=== PATIENT | female | born 1995 | race Caucasian/White ===

== ENCOUNTER 2016-10-15 09:20 | Emergency (ER) | payer SELFPAY | END 2016-10-15 09:35 | disposition left against medical advice (07) | LOC: ER 09:20 | DX: Z53.21 Procedure and treatment not carried out due to patient leaving prior to being seen by health care provider (principal) ==

== ENCOUNTER 2016-10-15 11:05 | Emergency (ER) | payer SELFPAY ==
--- NOTE | 2016-10-15 11:22 | ER Document Report ---
ED Medical Screen (RME) - General Stated Complaint: BACK PAIN Mode of Arrival: Ambulatory Information source: Patient Notes: 21 y/o F presents to ED c/o right lower posterior rib pain s/p fall. Pt reports was at store yesterday evening when she fell and struck her right lower posterior rib area on pole. Denies chest pain or sob. I have greeted and performed a rapid initial assessment of this patient. A comprehensive ED assessment and evaluation of the patient, analysis of test results and completion of the medical decision making process will be conducted by additional ED providers. TRAVEL OUTSIDE OF THE [place] IN LAST 30 DAYS: No - Related Data Allergies/Adverse Reactions: diphenhydramine [From Benadryl] Allergy (Severe, Verified 07/11/16 08:59) Swelling of hands and/or feet Past Medical History - Immunizations Immunizations up to date: Yes Hx Diphtheria, Pertussis, Tetanus Vaccination: Yes Physical Exam - Vital signs Vitals: Temp Pulse Resp BP Pulse Ox 98.0 F 85 16 115/71 97 10/15/16 11:16 10/15/16 11:16 10/15/16 11:16 10/15/16 11:16 10/15/16 11:16 - General General appearance: Appears well, Alert In distress: None - Respiratory Respiratory status: No respiratory distress Course - Vital Signs Vital signs: Temp Pulse Resp BP Pulse Ox 98.0 F 85 16 115/71 97 10/15/16 11:16 10/15/16 11:16 10/15/16 11:16 10/15/16 11:16 10/15/16 11:16
--- NOTE | 2016-10-15 12:25 | ER Document Report ---
HPI - HPI Patient complains to provider of: left upper back pain Onset: Yesterday Onset/Duration: Sudden Quality of pain: Achy Pain Level: 4 Context: Patient states she was playing around in a store with her spouse and fell into a metal support being. Patient complains of continued left upper back pain. Associated Symptoms: Other - Left upper back pain Exacerbated by: Movement Relieved by: Denies Similar symptoms previously: No Recently seen / treated by doctor: No - ROS ROS below otherwise negative: Yes Systems Reviewed and Negative: Yes All other systems reviewed and negative - CONSTITUTIONAL Constitutional: DENIES: Fever, Chills - REPRODUCTIVE Reproductive: DENIES: : - MUSCULOSKELETAL Musculoskeletal: REPORTS: Back Pain - DERM Skin Color: Normal Skin Problems: None Past Medical History - General Information source: Patient - Social History Smoking Status: Never Smoker Chew tobacco use (# tins/day): No Frequency of alcohol use: None Drug Abuse: None 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 IN LAST 30 DAYS: No - HEENT HEENT: Atraumatic, Normocephalic - NECK Neck: Normal Inspection, Supple - RESPIRATORY Respiratory: Breath Sounds Normal, No Respiratory Distress O2 Sat by Pulse Oximetry: 97 - CARDIOVASCULAR Cardiovascular: Regular Rate, Regular Rhythm, No Murmur - BACK Back: Abnormal Inspection - right lower thoracic back tenderness. negative: CVA Tenderness-Right, CVA Tenderness-Left - MUSCULOSKELETAL/EXTREMETIES Musculoskeletal/Extremeties: MAEW, FROM - NEURO Level of Consciousness: Awake, Alert, Appropriate Motor/Sensory: No Motor Deficit - DERM Integumentary: Warm, Dry, No Rash Course - Vital Signs Vital signs: Temp Pulse Resp BP Pulse Ox 98.0 F 85 16 115/71 97 10/15/16 11:16 10/15/16 11:16 10/15/16 11:16 10/15/16 11:16 10/15/16 11:16 - Diagnostic Test Radiology reviewed: Reports reviewed Discharge - Discharge Clinical Impression: Back strain Qualifiers: Encounter type: initial encounter Qualified Code(s): S39.012A - Strain of muscle, fascia and tendon of lower back, initial encounter Condition: Stable Disposition: HOME, SELF-CARE Instructions: Upper Back Strain ([facility]), Oral Narcotic Medication ([facility]) Additional Instructions: Return immediately for any new or worsening symptoms Followup with your primary care provider, call tomorrow to make a followup appointment Prescriptions: Hydrocodone/Acetaminophen [[place] 5-325 Tablet] 1 each PO Q4 PRN #15 tablet PRN Reason: Naproxen [Naprosyn 250 Nmg Tablet] 1 tab PO BID #14 tablet Forms: Return to Work Referrals: [facility] [Provider Group] - Follow up as needed [facility] [Provider Group] - Follow up as needed
[2016-10-15 12:44] VITALS: BP 109/67
== END 2016-10-15 12:41 | disposition home or self-care (01) ==
LOC: ER 11:05
DX: S39.012A Strain of muscle, fascia and tendon of lower back, initial encounter (principal); W19.XXXA Unspecified fall, initial encounter; Y92.512 Supermarket, store or market as the place of occurrence of the external cause; M54.89 Other dorsalgia
CPT/HCPCS: 99283

== ENCOUNTER 2017-01-14 15:59 | Emergency (ER) | payer SELFPAY ==
[2017-01-14] MEDS ORDERED: IBUPROFEN 800 MG TABLET PO ONE (17:00)
--- NOTE | 2017-01-14 17:00 | ER Document Report ---
ED Medical Screen (RME) - General Chief Complaint: Finger Injury Stated Complaint: RIGHT RING FINGER INJURY Time Seen by Provider: 01/14/17 16:32 Mode of Arrival: Ambulatory Information source: Patient Notes: Yesterday landing on her hand injuring her fourth finger on her right hand. Had a swollen tender right fourth finger. She has not gotten relief with over- the-counter medicines. I have greeted and performed a rapid initial assessment of this patient. A comprehensive ED assessment and evaluation of the patient, analysis of test results and completion of medical decision making process will be conducted by an additional ED providers. TRAVEL OUTSIDE OF THE [place] IN LAST 30 DAYS: No - Related Data Allergies/Adverse Reactions: diphenhydramine [From Benadryl] Allergy (Severe, Verified 01/14/17 16:06) Swelling of hands and/or feet Past Medical History Renal/ Medical History: Denies: Hx Peritoneal Dialysis - Immunizations Immunizations up to date: Yes Hx Diphtheria, Pertussis, Tetanus Vaccination: Yes
--- NOTE | 2017-01-14 18:06 | ER Document Report ---
ED Hand/Wrist Injury - General Chief Complaint: Finger Injury Stated Complaint: RIGHT RING FINGER INJURY Time Seen by Provider: 01/14/17 16:32 Mode of Arrival: Ambulatory Information source: Patient Notes: 21-year-old female presents to ED for complaint of pain on her right fourth finger. She states she fell and caught herself with that finger. Finger is swollen and bruised. She states it hurts to bend it but she is able to bend the finger. TRAVEL OUTSIDE OF THE [place] IN LAST 30 DAYS: No - HPI Injury to: Ring finger Onset: Other - 2 days Where: Home, Indoors Timing: Still present Quality of pain: Achy, Throbbing Severity: Moderate Pain Level: 4 Context: Fall - Related Data Allergies/Adverse Reactions: diphenhydramine [From Benadryl] Allergy (Severe, Verified 01/14/17 16:06) Swelling of hands and/or feet Past Medical History - General Information source: Patient - Social History Smoking Status: Never Smoker Cigarette use (# per day): No Chew tobacco use (# tins/day): No Smoking Education Provided: No Frequency of alcohol use: Occasional Drug Abuse: None Occupation: [employer] Lives with: Spouse/Significant other Family History: DM. denies: None, Reviewed & Not Pertinent, Arthritis, CAD, COPD, CVA, Hyperlipidemia, Hypertension, Malignancy, Thyroid Disfunction, Other Patient has suicidal ideation: No Patient has homicidal ideation: No - Past Medical History Cardiac Medical History: Reports: None Pulmonary Medical History: Reports: None EENT Medical History: Reports: None Neurological Medical History: Reports: None Endocrine Medical History: Reports: None Renal/ Medical History: Reports: None Malignancy Medical History: Reports: None GI Medical History: Reports: None Musculoskeltal Medical History: Reports None Skin Medical History: Reports None Psychiatric Medical History: Reports: None Traumatic Medical History: Reports: None Infectious Medical History: Reports: None Surgical Hx: Negative - Immunizations Immunizations up to date: Yes Hx Diphtheria, Pertussis, Tetanus Vaccination: Yes Review of Systems - Review of Systems Constitutional: No symptoms reported EENT: No symptoms reported Cardiovascular: No symptoms reported Respiratory: No symptoms reported Gastrointestinal: No symptoms reported Genitourinary: No symptoms reported Female Genitourinary: No symptoms reported Musculoskeletal: Other - right Fourth finger pain swelling and bruised Skin: No symptoms reported Hematologic/Lymphatic: No symptoms reported Neurological/Psychological: No symptoms reported Physical Exam - Vital signs Vitals: Temp Pulse Resp BP Pulse Ox 98.9 F 85 14 123/71 98 01/14/17 16:08 01/14/17 16:08 01/14/17 16:08 01/14/17 16:08 01/14/17 16:08 Interpretation: Normal - General General appearance: Appears well, Alert - HEENT Head: Normocephalic, Atraumatic Eyes: Normal Pupils: PERRL - Respiratory Respiratory status: No respiratory distress Chest status: Nontender Breath sounds: Normal Chest palpation: Normal - Cardiovascular Rhythm: Regular Heart sounds: Normal auscultation Murmur: No - Abdominal Inspection: Normal Distension: No distension Bowel sounds: Normal Tenderness: Nontender Organomegaly: No organomegaly - Back Back: Normal, Nontender - Extremities General upper extremity: Normal temperature General lower extremity: Normal inspection, Nontender, Normal color, Normal ROM , Normal temperature, Normal weight bearing. No: Damien's sign Hand: Tender, Ecchymosis, No evidence of human bite, No evidence of FB, Swelling - Neurological Neuro grossly intact: Yes Cognition: Normal Orientation: AAOx4 [place] Coma Scale Eye Opening: Spontaneous [place] Coma Scale Verbal: Oriented [place] Coma Scale Motor: Obeys Commands [place] Coma Scale Total: 15 Speech: Normal Motor strength normal: LUE, RUE, LLE, RLE Sensory: Normal - Psychological Associated symptoms: Normal affect, Normal mood - Skin Skin Temperature: Warm Skin Moisture: Dry Skin Color: Normal Course - Re-evaluation Re-evalutation: 01/14/17 18:15 Discussed x-ray with patient and written report given to patient. Patient treated with ibuprofen and instructed to use ibuprofen for her pain. Patient given instructions on elevation and ice. Patient to follow-up with orthopedic if pain and swelling are not relieved or increase. - Vital Signs Vital signs: Temp Pulse Resp BP Pulse Ox 98.9 F 85 14 123/71 98 01/14/17 16:08 01/14/17 16:08 01/14/17 16:08 01/14/17 16:08 01/14/17 16:08 - Diagnostic Test Radiology reviewed: Image reviewed, Reports reviewed Discharge - Discharge Clinical Impression: Sprain of right ring finger Qualifiers: Encounter type: initial encounter Sprain of finger site: interphalangeal joint Qualified Code(s): S63.634A - Sprain of interphalangeal joint of right ring finger, initial encounter Condition: Stable Disposition: HOME, SELF-CARE Additional Instructions: finger SPRAIN: Your injury is a sprain. A sprain results from stretching or tearing of the ligaments, usually from a twisting injury. The ligaments will require time and protection in order to heal properly. Many sprains are quite disabling and should be taken seriously. The usual initial treatment of sprains is cold packs, elevation, and rest of the injured area. Your physician has assessed the seriousness of your ligament injury, and has outlined a treatment plan. Understand that this treatment may change, depending on how you progress. If a re-examination was recommended, it is important that you follow up as instructed. Call the doctor any time if there is severe pain, numbness, or loss of function in the injured area. ICE & ELEVATION: Apply ice packs frequently against the painful area. Many different schedules are recommended, such as "20 minutes on, 20 minutes off" or "one hour ice, two hours rest." If you need to work, you may need to go longer between ice treatments. You should plan to have the area ice packed AT LEAST one- fourth of the time. The ice should be applied over the wrap, tape, or splint, or over a layer of cloth -- not directly against the skin. Some ice bags have a built-in cloth and can be put directly on the skin. Your injured part should be elevated as much as possible over the next 48 hours. Try to keep the injury above the level of the heart. Avoid use of the injured area. Elevation and rest will decrease the swelling. USE OF [id number]-YKT-TCHWLEX IBUPROFEN: Ibuprofen (Advil, Nuprin, Medipren, Motrin IB) is a medication for fever and pain control. In addition, it has anti- inflammatory effects which may be beneficial, especially in the treatment of injuries. It's best to take ibuprofen with food. Persons with ulcer disease or allergy to aspirin should notify their physician of this before taking ibuprofen. Ibuprofen can be given every four to six hours, for a total of four doses daily. Age Pain or fever dose Antiinflammatory dose 6-8 yr 200 mg (1 tab) 200 mg (1 tab) 9-11 yr 200 mg (1 tab) 200-400 mg (1-2 tab) 11-14 yr 200-400 mg (1-2 tab) 400 mg (2 tab) 15-adult 400 mg (2 tab) 600 mg (3 tab) FOLLOW-UP CARE: If you have been referred to a physician for follow-up care, call the physician s office for an appointment as you were instructed or within the next two days. If you experience worsening or a significant change in your symptoms, notify the physician immediately or return to the Emergency Department at any time for re-evaluation. Forms: Return to Work Referrals: MILI ALLEN DO [ACTIVE STAFF] - Follow up as needed
[2017-01-14 18:21] VITALS: BP 113/63
== END 2017-01-14 18:24 | disposition home or self-care (01) ==
LOC: ER 15:59
DX: S63.634A Sprain of interphalangeal joint of right ring finger, initial encounter (principal); W19.XXXA Unspecified fall, initial encounter; Y92.009 Unspecified place in unspecified non-institutional (private) residence as the place of occurrence of the external cause
CPT/HCPCS: 99283

== ENCOUNTER 2017-06-20 15:05 | Emergency (ER) | payer SELFPAY ==
[2017-06-20 15:31] VITALS: BP 115/66
--- NOTE | 2017-06-20 16:33 | ER Document Report ---
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 She states she is having pelvic pain vaginal pain and left inguinal pain. She also is urinating more frequently. She denies any vaginal bleeding. She states she has some discharge but this is because she has a yeast infection. TRAVEL OUTSIDE OF THE [place] IN LAST 30 DAYS: No - Related Data Allergies/Adverse Reactions: diphenhydramine [From Benadryl] Allergy (Severe, Verified 01/14/17 16:06) Swelling of hands and/or feet Past Medical History Renal/ Medical History: Denies: Hx Peritoneal Dialysis - Immunizations Immunizations up to date: Yes Hx Diphtheria, Pertussis, Tetanus Vaccination: Yes Physical Exam - Vital signs Vitals: Temp Pulse Resp BP Pulse Ox 99.6 F 71 14 115/66 100 06/20/17 15:26 06/20/17 15:26 06/20/17 15:26 06/20/17 15:26 06/20/17 15:26 Course - Vital Signs Vital signs: Temp Pulse Resp BP Pulse Ox 99.6 F 71 14 115/66 100 06/20/17 15:26 06/20/17 15:26 06/20/17 15:26 06/20/17 15:26 06/20/17 15:26
[2017-06-20 17:19] LABS: APPEARANCE,URINE CLEAR; BILIRUBIN,URINE NEGATIVE (NEGATIVE); GLUCOSE, URINE NEGATIVE (NEGATIVE); KETONES,URINE NEGATIVE (NEGATIVE); LEUKOCYTE ESTERASE,URINE NEGATIVE (NEGATIVE); NITRITE,URINE NEGATIVE (NEGATIVE); PROTEIN,URINE NEGATIVE (NEGATIVE); URINE SPECIFIC GRAVITY 1.011; UROBILINOGEN,URINE NEGATIVE mg/dL (<2.0)
[2017-06-20] MEDS ORDERED: IBUPROFEN 800 MG TABLET PO ONE (17:26)
--- NOTE | 2017-06-20 17:28 | ER Document Report ---
HPI - HPI Patient complains to provider of: Vaginal discharge, pelvic pain Onset: Other - Off and on 6 weeks Onset/Duration: Worse Quality of pain: Cramping Pain Level: 3 Context: Patient complains of left lower pelvic pain off and on for the past 6 weeks. Patient states pain symptoms worsen today. Patient does report some mild vaginal discharge and is concerned about possible yeast infection. Patient denies any concern about possible sexually transmitted infection. Patient does report some urinary frequency but states she has had this symptom ever since having her child over a year ago. Patient denies any fever, nausea, or vomiting. 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 Patient states she has been advised that she needs to follow-up with a surgeon to have this definitively treated. Associated Symptoms: Other - Left lower pelvic pain, vaginal discharge. denies : Nonproductive cough, Productive cough, Fever Exacerbated by: Denies Relieved by: Denies Similar symptoms previously: No Recently seen / treated by doctor: No - ROS ROS below otherwise negative: Yes Systems Reviewed and Negative: Yes All other systems reviewed and negative - CONSTITUTIONAL Constitutional: DENIES: Fever, Chills - CARDIOVASCULAR Cardiovascular: DENIES: Chest pain - RESPIRATORY Respiratory: DENIES: Trouble Breathing, Coughing - GASTROINTESTINAL Gastrointestinal: REPORTS: Abdominal Pain. DENIES: Nausea, Patient vomiting - URINARY Urinary: REPORTS: Frequency. 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 denies: None, Reviewed & Not Pertinent, Arthritis, CAD, COPD, CVA, Hyperlipidemia, Hypertension, Malignancy, Thyroid Disfunction, Other Renal/ Medical History: Denies: Hx Peritoneal Dialysis Musculoskeltal Medical History: Reports Hx Arthritis, Reports Hx Fibromyalgia Surgical Hx: Negative - Immunizations Immunizations up to date: Yes Hx Diphtheria, Pertussis, Tetanus Vaccination: Yes Vertical Provider Document - CONSTITUTIONAL Agree With Documented VS: Yes Exam Limitations: No Limitations General Appearance: WD/WN, No Apparent Distress - INFECTION CONTROL TRAVEL OUTSIDE OF THE [place] IN LAST 30 DAYS: No - HEENT HEENT: Atraumatic, Normocephalic - NECK Neck: Normal Inspection - RESPIRATORY Respiratory: Breath Sounds Normal, No Respiratory Distress O2 Sat by Pulse Oximetry: 100 - CARDIOVASCULAR Cardiovascular: Regular Rate, Regular Rhythm - GI/ABDOMEN Gastrointestinal: Abdomen Soft, Abdomen Tender - Left lower pelvic tenderness, Normal Bowel Sounds - REPRODUCTIVE Female Genitalia: negative: CMT, Adnexal Pain-Right, Adnexal Pain-Left Notes: small papular flesh colored lesion, with faint erythematous border at vaginal introitus, nontender no vaginal bleeding, very minimal white discharge - BACK Back: Normal Inspection - MUSCULOSKELETAL/EXTREMETIES Musculoskeletal/Extremeties: MACRYSTAL, FROM - NEURO Level of Consciousness: Awake, Alert, Appropriate Motor/Sensory: No Motor Deficit - DERM Integumentary: Warm, Dry, Abscess - Patient with small amount of purulent drainage from pilonidal abscess, no overlying erythema, no drainable collection Course - Re-evaluation Re-evalutation: 06/20/17 18:31 Patient states that she needs to leave so that she can go to work. Patient does not want to stay for the results of her wet prep test. Patient states that she only wants to be called if anything is abnormal that needs to be treated. Patient states that she does not have any concern about any kind of sexually transmitted infection and is not worried about any possible herpes infection at this time because she says that she has had this abnormal skin lesion checked previously by her plant production worker at the health [facility] and it did not come back abnormal for anything. Patient is insistent that she has a yeast infection and would like treatment for this. No concern for pyelonephritis, TOA or torsion at this time. Patient appears very comfortable on exam. Patient does report episodes of intermittent constipation and states that she is concerned that she might have had pain related to constipation. - Vital Signs Vital signs: Temp Pulse Resp BP Pulse Ox 99.6 F 71 14 115/66 100 06/20/17 15:26 06/20/17 15:26 06/20/17 15:26 06/20/17 15:26 06/20/17 15:26 - Laboratory Laboratory results interpreted by me: 06/20/17 20:25 Labs- Entire Visit 06/20/17 06/20/17 16:45 17:42 Urine Color YELLOW Urine Appearance CLEAR Urine pH 6.0 Ur Specific [place] 1.011 Urine Protein NEGATIVE Urine Glucose (UA) NEGATIVE Urine Ketones NEGATIVE Urine Blood NEGATIVE Urine Nitrite NEGATIVE Urine Bilirubin NEGATIVE Urine Urobilinogen NEGATIVE Ur Leukocyte Esterase NEGATIVE Urine WBC (Auto) 1 Urine RBC (Auto) 0 Squamous Epi Cells Auto <1 Urine Ascorbic Acid NEGATIVE Urine HCG, Qual NEGATIVE Epi Cells (Wet Prep) 3+ EPITHELIALS SEEN Bacteria (Wet Prep) 3+ BACTERIA SEEN Trichomonas (Wet Prep) NO TRICHOMONAS SEEN Vaginal WBC 2+ WBCS SEEN Vaginal Yeast NO YEAST SEEN Discharge - Discharge Clinical Impression: Vaginal discharge, Pelvic pain Condition: Stable Disposition: HOME, SELF-CARE Instructions: Metronidazole ([facility]) Additional Instructions: Return immediately for any new or worsening symptoms Followup with your primary care provider, call tomorrow to make a followup appointment Follow-up with your plant production worker for further evaluation Cultures are pending, we will call if you need any different treatment Prescriptions: Fluconazole [Diflucan] 150 mg PO ONCE PRN #1 tablet PRN Reason: Metronidazole [Flagyl 500 mg Tablet] 500 mg PO BID #14 tablet [facility] - Follow up tomorrow
[2017-06-20 20:09] LABS: CHLAM PCR NOT DETECTED (NOT DETECT)
== END 2017-06-20 19:09 | disposition home or self-care (01) ==
LOC: ER 15:05
DX: N89.8 Other specified noninflammatory disorders of vagina (principal); R10.2 Pelvic and perineal pain
CPT/HCPCS: 81001; 81025; 87210; 87250; 87491; 87591; 99284

== ENCOUNTER 2017-09-23 15:35 | Emergency (ER) | payer SELFPAY ==
--- NOTE | 2017-09-23 16:47 | ER Document Report ---
ED GI/ - General Chief Complaint: Pain All Over Stated Complaint: HIP/ABDOMINAL PAIN Time Seen by Provider: 09/23/17 16:10 Mode of Arrival: Ambulatory Information source: Patient TRAVEL OUTSIDE OF THE [place] IN LAST 30 DAYS: No - HPI Onset: Other - month Timing/Duration: Sudden Quality of pain: Achy Severity at maximum: Mild Severity in ED: Mild Notes: 09/23/17 16:44 Patient arrives with complaints of pelvic pain for the last month. She states that it seems to somewhat come and go. She does have some vaginal discharge. She tells me she was [facility] a little over a month ago and had a normal Pap smear and had negative STD testing as well as negative wet prep at that time. She denies any nausea, vomiting, diarrhea. She denies any significant dysuria or hematuria. She denies any rashes. She denies any chest pain or shortness of breath. She denies any fevers. She also reports that she been having some left jaw pain for the last month as well. This occasionally gives her a headache in the left side of her head. She denies any severe pain currently. No swelling. No fevers. No difficulty breathing or swallowing. She denies any other complaints at this time. - Related Data Allergies/Adverse Reactions: diphenhydramine [From Benadryl] Allergy (Severe, Verified 09/23/17 15:38) Swelling of hands and/or feet Past Medical History - Social History Smoking Status: Unknown if Ever Smoked Family History: DM. denies: None, Reviewed & Not Pertinent, Arthritis, CAD, COPD, CVA, Hyperlipidemia, Hypertension, Malignancy, Thyroid Disfunction, Other Renal/ Medical History: Denies: Hx Peritoneal Dialysis Musculoskeltal Medical History: Reports Hx Arthritis, Reports Hx Fibromyalgia - Immunizations Immunizations up to date: Yes Hx Diphtheria, Pertussis, Tetanus Vaccination: Yes Review of Systems - Review of Systems -: Yes All other systems reviewed and negative Physical Exam - Vital signs Vitals: Temp Pulse BP Pulse Ox 98.7 F 94 124/66 99 09/23/17 15:53 09/23/17 15:53 09/23/17 15:53 09/23/17 15:53 - Notes Notes: GENERAL: alert, cooperative, nontoxic, no distress. HEAD: normocephalic, atraumatic EYES: conjunctiva pink without discharge, no external redness or swelling. EARS: no external swelling, no external redness NOSE: atraumatic, no external swelling MOUTH/THROAT: mucous membranes moist and pink, posterior pharynx without erythema, swelling, exudate. No trismus or drooling. Dental exam is unremarkable. She has some mild tenderness to palpation at the angle of the left jaw with no redness or swelling. No dental abscess identified. NECK: soft, supple, full range of motion, no meningismus. CHEST: no distress, lungs clear and equal throughout. No wheezing, rales, rhonchi. CARDIAC: regular rate and rhythm, no murmur, normal capillary refill, normal pulses. No peripheral edema noted. ABDOMEN: Soft, minimal tenderness to the suprapubic area. No masses. No rebound tenderness or guarding. BACK: full range of motion, no CVA tenderness. EXTREMITIES: full range of motion of all extremities. No redness, no swelling. NEURO: alert and oriented x 3, no focal deficits, full range of motion of all extremities. PYSCH: appropriate mood, affect. Patient is cooperative. SKIN: pink, warm, dry, no rash. : Exam performed with female nurse at the bedside. No external lesions identified. Cervical office is closed. No cervical motion tenderness. No adnexal tenderness or masses. Small amount of white thin discharge noted within the vaginal vault. Course - Re-evaluation Re-evalutation: 09/23/17 18:22 Patient is nontoxic appearing with stable vitals. Been having jaw pain and intermittent pelvis and hip pain for quite some time now. Her jaw exam is benign with no sign of obvious dental source or dental abscess. It is possible though she could have a deeper dental problem that I am not able to visualize at this time. For that reason I have instructed her to follow-up with a dentist regarding her chronic jaw pain. She has a benign pelvic exam. Pelvic ultrasound shows no acute abnormalities. Urinalysis is negative, urine is negative, wet prep is negative. GC chlamydia cultures are pending at this time. Patient has had this pain for quite some time as well, therefore I have instructed her she should probably follow-up with an [employer]IL [employer] TECHNICAL OFFICER. She will be given dental referrals as well as an [employer]IL SCI[employer] TECHNICAL OFFICER referral. I will discharge her home on Voltaren. Follow-up with specialist at the next available appointment. Follow-up sooner for increasing pain, high fever, severe vomiting, or for any further concerns. The patient is noted to have elevated blood pressure during today's emergency department visit. The patient was informed of this finding. The patient was instructed that this may be related to pre-hypertension and requires further evaluation with a primary care provider. The patient has no hypertensive symptoms at this time. The patient's emergency department workup and current diagnosis were explained to the patient and or family. Follow-up instructions were provided. Medications if prescribed were discussed. Instructions for when to return to the emergency department including specific worrisome symptoms were discussed with the patient and/or family. - Vital Signs Vital signs: Temp Pulse Resp BP Pulse Ox 98.7 F 94 124/66 99 09/23/17 15:53 09/23/17 15:53 09/23/17 15:53 09/23/17 15:53 - Laboratory Laboratory results interpreted by ca: 09/23/17 16:50 Ur Leukocyte Esterase TRACE H - Diagnostic Test Radiology reviewed: Image reviewed, Reports reviewed - Pelvic ultrasound with no acute abnormality per the radiologist Discharge - Discharge Clinical Impression: Jaw pain, Pelvic pain Condition: Stable Disposition: HOME, SELF-CARE Instructions: Pelvic Pain ([facility]), Dentist Additional Instructions: Take medications as prescribed. Follow-up with SOIL SCI[employer] TECHNICAL OFFICER and dentist at the next available appointment. Follow-up sooner for increasing pain, fever, swelling, difficulty breathing or swallowing, severe vomiting, severe abdominal pain, or any further concerns. Your blood pressure was elevated during today's visit. Have this rechecked with your doctor. Prescriptions: Diclofenac Sodium [Voltaren 50 Mg Tablet.] 50 mg PO BID #20 tablet. Forms: Elevated Blood Pressure, Smoking Cessation Education Referrals: [facility] [Provider Group] - Follow up as needed [facility] [Provider Group] - Follow up as needed LUCAS NAYLOR MD [ACTIVE STAFF] - Follow up as needed
--- NOTE | 2017-09-23 17:33 | RADIOLOGY REPORT (SQ) ---
EXAM DESCRIPTION: U/S NON OB PEL TV W/DOPPLER COMPLETED DATE/TIME: 09/23/2017 5:19 pm REASON FOR STUDY: pelvic pain COMPARISON: None. TECHNIQUE: Dynamic and static grayscale images acquired of the pelvis via transvaginal approach and recorded on PACS. Additional selected color Doppler and spectral images recorded. LIMITATIONS: None. FINDINGS: UTERUS: Contour normal. No mass. ENDOMETRIAL STRIPE: No focal or generalized thickening. No masses. CERVIX: No nabothian cysts. RIGHT OVARY: No abnormal masses. RIGHT OVARY DOPPLER: Normal arterial vascular flow without evidence for torsion. LEFT OVARY: No abnormal masses. LEFT OVARY DOPPLER: Normal arterial vascular flow without evidence for torsion. FREE FLUID: None noted. OTHER: No other significant finding. MEASUREMENTS: UTERUS: 7.4 x 4.1 x 3.4 cm ENDOMETRIAL STRIPE: 3 mm RIGHT OVARY: 2 x 2 x 3.5 cm LEFT OVARY: 2 x 1.5 x 2.5 cm IMPRESSION: NORMAL TRANSVAGINAL PELVIC ULTRASOUND. TECHNICAL DOCUMENTATION: JOB ID: [id number] [place]-72 2010 [employer]- All Rights Reserved
[2017-09-23 17:45] LABS: T.VAGINALIS (WET MOUNT) NO TRICHOMONAS SEEN; WBCS (WET MOUNT) RARE WBCS SEEN; YEAST (WET MOUNT) NO YEAST SEEN
[2017-09-23 17:45] LABS: APPEARANCE,URINE SLIGHTLY-CLOUDY; BILIRUBIN,URINE NEGATIVE (NEGATIVE); COLOR,URINE STRAW; GLUCOSE, URINE NEGATIVE (NEGATIVE); KETONES,URINE NEGATIVE (NEGATIVE); LEUKOCYTE ESTERASE,URINE TRACE (NEGATIVE); NITRITE,URINE NEGATIVE (NEGATIVE); PROTEIN,URINE NEGATIVE (NEGATIVE); URINE SPECIFIC GRAVITY 1.006; UROBILINOGEN,URINE NEGATIVE mg/dL (<2.0)
[2017-09-23 18:36] VITALS: BP 121/72
[2017-09-23 19:14] LABS: CHLAM PCR NOT DETECTED (NOT DETECT); GON PCR NOT DETECTED (NOT DETECT)
== END 2017-09-23 18:34 | disposition home or self-care (01) ==
LOC: ER 15:35
DX: R68.84 Jaw pain (principal); R10.2 Pelvic and perineal pain; R10.9 Unspecified abdominal pain; N89.8 Other specified noninflammatory disorders of vagina; M25.559 Pain in unspecified hip
CPT/HCPCS: 76830; 81001; 81025; 87210; 87491; 87591; 93976; 99284

== ENCOUNTER 2017-10-27 16:33 | Emergency (ER) | payer SELFPAY ==
[2017-10-27 16:45] VITALS: BP 103/72
--- NOTE | 2017-10-27 17:13 | ER Document Report ---
ED General - General Chief Complaint: Jaw Pain Stated Complaint: JAW PAIN Time Seen by Provider: 10/27/17 16:58 Mode of Arrival: Ambulatory Information source: Patient Notes: Patient is a healthy 22 year old female who presents with right upper jaw pain that radiates up to her here for the past 2-3 weeks. She states pain is worse with mastication. Endorses associated headache, neck pain, nausea, lightheadedness. She has only tried tylenol for this with no relief of symptoms. Denies fever, chills, ear pain, facial swelling, difficulty swallowing , neck stiffness, dizziness, n/v/d. TRAVEL OUTSIDE OF THE [place] IN LAST 30 DAYS: No - Related Data Allergies/Adverse Reactions: diphenhydramine [From Benadryl] Allergy (Severe, Verified 10/27/17 16:37) Swelling of hands and/or feet Past Medical History - General Information source: Patient - Social History Smoking Status: Never Smoker Family History: DM. denies: None, Reviewed & Not Pertinent, Arthritis, CAD, COPD, CVA, Hyperlipidemia, Hypertension, Malignancy, Thyroid Disfunction, Other Renal/ Medical History: Denies: Hx Peritoneal Dialysis Musculoskeltal Medical History: Reports Hx Arthritis, Reports Hx Fibromyalgia - Immunizations Immunizations up to date: Yes Hx Diphtheria, Pertussis, Tetanus Vaccination: Yes Review of Systems - Review of Systems Constitutional: See HPI EENT: See HPI Cardiovascular: No symptoms reported Respiratory: No symptoms reported Gastrointestinal: No symptoms reported Genitourinary: No symptoms reported Female Genitourinary: No symptoms reported Musculoskeletal: No symptoms reported Skin: No symptoms reported Hematologic/Lymphatic: No symptoms reported Neurological/Psychological: No symptoms reported Physical Exam - Vital signs Vitals: Temp Pulse Resp BP Pulse Ox 98.5 F 96 14 103/72 98 10/27/17 16:43 10/27/17 16:43 10/27/17 16:43 10/27/17 16:43 10/27/17 16:43 - Notes Notes: PHYSICAL EXAM: CONSTITUTIONAL: Alert and oriented, well-appearing and in no acute distress. Speaking in full sentences without difficulty. VSS. HENT: Normocephalic, atraumatic. Ear canals without erythema or foreign body, TMs pearly joel with good bony landmarks. Nares clear without erythema, septal hematoma or deviation, airway patent. Oropharynx clear without erythema, tonsilar exudate or malocclusion. Trachea midline. Uvula midline. Moist mucous membranes. TTP to gingiva over teeth #1-4 without area of fluctuance. No submandibular or mastoid tenderness. Mild TMJ tenderness without palpable deformity. EYES: Pupils equal round and reactive to light, EOM intact. Sclera anicteric, conjunctiva are normal. No entrapment. NECK: supple without lymphadenopathy. No midline tenderness or paraspinous muscle spasms. No step-offs or deformities. ROM intact. Negative Kergni's and negative Brudzinski's. HEART: Regular rate and rhythm without murmurs. LUNGS: CTAB and equal. No wheezes, rales or rhonchi. EXTREMITIES: no bony tenderness, erythema, edema, ecchymosis or deformity. Normal range of motion, no pitting edema. No cyanosis. Cap Refill <3 seconds. NEURO: Cranial nerves grossly intact. Normal sensory/motor exams. PSYCH: Normal mood, normal affect. SKIN: Warm and dry. Normal turgor. No rashes or lesions noted. Course - Re-evaluation Re-evalutation: 10/27/17 17:13 Patient seen and examined. Healthy appearing, well hydrated. VSS, no respiratory distress, speaking in full sentences without difficulty. Pain is more associated with gingiva than actual jaw pain, no evidence of abscess. Low suspicion based on exam for peritonsillar abscess, submandibular space infection , mastoiditis, meningitis. Will treat with abx, pain medication and anti- inflammatories. Patient in agreement with this plan. At this time, will discharge with return precautions and follow-up recommendations. Verbal discharge instructions given at the bedside and opportunity for questions given. Medication warnings reviewed. Patient is in agreement with this plan and has verbalized understanding of return precautions and the need for primary care follow-up in the next 24-72 hours. - Vital Signs Vital signs: Temp Pulse Resp BP Pulse Ox 98.5 F 96 14 103/72 98 10/27/17 16:43 10/27/17 16:43 10/27/17 16:43 10/27/17 16:43 10/27/17 16:43 Discharge - Discharge Clinical Impression: Pain, dental TMJ arthralgia Qualifiers: Laterality: right Qualified Code(s): M26.621 - Arthralgia of right temporomandibular joint Condition: Stable Disposition: HOME, SELF-CARE Additional Instructions: TOOTHACHE: Your pain is due to dental decay. The tooth must be repaired in order for you to feel better. You will, therefore, be referred to a dentist. We do not have dentists on the staff at [facility]. Severe swelling or drainage around a tooth usually means a dental abscess. This also requires evaluation and treatment by the dentist, but antibiotics may be prescribed while awaiting dental treatment. You should be rechecked immediately if you develop major swelling of the face, increasing pain, a lump in the jaw or gums, headache, difficulty swallowing, or fever. ORAL NARCOTIC MEDICATION: You have been given a prescription for pain control. This medication is a narcotic. It's best taken with food, as nausea can result if taken on an empty stomach. Don't operate machinery or drive within six hours of taking this medication. Do not combine this medicine with alcohol, or with any medication which can cause sedation (such as cold tablets or sleeping pills) unless you get permission from the physician. Narcotics tend to cause constipation. If possible, drink plenty of fluids and eat a diet high in fiber and fruits. Please be aware that prescription narcotics also have the potential for abuse. People become addicted to these medications because of the general sense of wellbeing that they induce. This feeling along with a significant reduction in tension, anxiety, and aggression provides a stimulating seductive quality to these drugs. Once your pain is under control, we encourage you to discard your unused narcotics. Antibiotic Therapy You have been given an antibiotic prescription. It's important that you take all the medication, unless instructed otherwise by your physician. Failure to complete the entire course can result in relapse of your condition. Common side effects of antibiotics include nausea, intestinal cramping, or diarrhea. Women may develop vaginal yeast infections, and babies can get yeast (thrush) in the mouth following the use of antibiotics. Contact your physician if you develop significant side effects from this medication. Allergy to this antibiotic can result in hives, wheezing, faintness, or itching. If symptoms of allergy occur, stop the medication and call the doctor. FOLLOW-UP CARE: You have been referred for follow-up care to the dentists listed below. Call the dentists office for an appointment as you were instructed or within the next two days. If you experience worsening or a significant change in your symptoms, notify the physician immediately or return to the Emergency Department at any time for re-evaluation. [facility] [address] [place], [place] mornings, by appointment [facility] [address] [place] [address] [facility] [address] [facility] [address] [facility] [address] [email or web address] [address] [place] [address] Tuesday- 8:00am to 5:00 pm Will see patients from other [facility]. Charges based on income and family size and accepts Medicare, Medicaid, and Insurances Will pull molars [facility] [id number] Hours of Operation 8:00 am - 4:30 pm weekdays The following dental offices accept Medicaid: [facility] Dr. Kim Dr. Bernabe Dr. Weinstein Dr. Wilson Jerod Garcia L[place], and [facility] oral surgery Dr. Xiao ([place]) Dr. Lopez ([place]) [facility] Drs. Navarro and Jason ([place]) Dr. Almonte ([place]) [facility] Dr. Hutchinson ([place]) Drs. Lara and ([place]) Medicaid Care Line Prescriptions: Tramadol HCl [Ultram] 50 mg PO Q8HP PRN #10 tablet PRN Reason: Amoxicillin Trihydrate [Amoxil 500 mg Capsule] 500 mg PO BID #14 capsule Ibuprofen [Motrin 600 Mg Tablet] 600 mg PO TID #15 tablet
== END 2017-10-27 17:45 | disposition home or self-care (01) ==
LOC: ER 16:33
DX: K08.9 Disorder of teeth and supporting structures, unspecified (principal); M26.621 Arthralgia of right temporomandibular joint
CPT/HCPCS: 99283

== ENCOUNTER 2018-09-29 14:42 | Emergency (ER) | payer OTHER ==
[2018-09-29] MEDS ORDERED: ACETAMINOPHEN 325 MG TABLET PO ONE (15:21)
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
[2018-09-29 16:41] VITALS: BP 133/74
== END 2018-09-29 16:41 | disposition home or self-care (01) ==
LOC: ER 14:42
DX: S16.1XXD Strain of muscle, fascia and tendon at neck level, subsequent encounter (principal); M54.5 Low back pain; R51 Headache; M54.2 Cervicalgia; V87.7XXD Person injured in collision between other specified motor vehicles (traffic), subsequent encounter
CPT/HCPCS: 72125; 99284

== ENCOUNTER 2018-09-30 13:20 | Emergency (ER) | payer OTHER ==
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
[2018-09-30 16:59] VITALS: BP 133/78
== END 2018-09-30 16:59 | disposition home or self-care (01) ==
LOC: ER 13:20
DX: S16.1XXA Strain of muscle, fascia and tendon at neck level, initial encounter (principal); M54.89 Other dorsalgia; M54.5 Low back pain; R51 Headache; M54.2 Cervicalgia; V49.40XA Driver injured in collision with unspecified motor vehicles in traffic accident, initial encounter; M79.7 Fibromyalgia; Z79.1 Long term (current) use of non-steroidal anti-inflammatories (NSAID); Z79.899 Other long term (current) drug therapy; Z88.8 Allergy status to other drugs, medicaments and biological substances
CPT/HCPCS: 72070; 72110; 99283

== ENCOUNTER 2019-09-08 08:07 | Emergency (ER) | payer OTHER ==
--- NOTE | 2019-09-08 10:49 | ER Document Report ---
ED General - General Chief Complaint: Fever Stated Complaint: FEVER,CONGESTION,EAR PAIN Time Seen by Provider: 09/08/19 09:31 Primary Care Provider: [facility] [Provider Group] - Follow up in 3-5 days ENRIQUETA RADFORD MD [ACTIVE STAFF] - Follow up in 3-5 days Notes: 24-year-old female presents with nasal congestion, feeling like there is fluid in her ears, congestion, productive cough with clear sputum that started 3 to 4 days ago. Patient initially stated she only tried NyQuil and DayQuil with no relief. Patient also reports chest pain. Patient also reports a "fever of 100 degrees" yesterday. Patient also states she had some associated nausea. Patient denies vomiting, diarrhea, constipation, abdominal pain, shortness of breath. TRAVEL OUTSIDE OF THE [place] IN LAST 30 DAYS: No - Related Data Allergies/Adverse Reactions: diphenhydramine [From Benadryl] Allergy (Severe, Verified 09/08/19 08:10) Swelling of hands and/or feet Past Medical History - Social History Smoking Status: Never Smoker Chew tobacco use (# tins/day): No Frequency of alcohol use: None Drug Abuse: None Family History: DM Patient has suicidal ideation: No Patient has homicidal ideation: No Renal/ Medical History: Denies: Hx Peritoneal Dialysis Musculoskeletal Medical History: Reports Hx Arthritis, Reports Hx Fibromyalgia Traumatic Medical History: Reports: Hx Traumatic Brain Injury - Immunizations Immunizations up to date: Yes Hx Diphtheria, Pertussis, Tetanus Vaccination: Yes Review of Systems - Review of Systems Notes: Constitutional: Positive for fever. HENT: Positive for sore throat, congestion, fluid behind the ears, productive cough. Eyes: Negative for visual changes. Cardiovascular: Positive for chest pain. Respiratory: Negative for shortness of breath. Gastrointestinal: Negative for abdominal pain, vomiting or diarrhea. Genitourinary: Negative for dysuria. Musculoskeletal: Negative for back pain. Skin: Negative for rash. Neurological: Negative for headaches, weakness or numbness. 10 point ROS negative except as marked above and in HPI. Physical Exam - Vital signs Vitals: Temp Pulse Resp BP Pulse Ox 97.7 F 82 16 118/55 L 98 09/08/19 08:11 09/08/19 08:11 09/08/19 08:11 09/08/19 08:11 09/08/19 08:11 - Notes Notes: GENERAL: Well-appearing, well-nourished and in no acute distress. HEAD: Atraumatic, normocephalic. EYES: Extraocular movements intact, sclera anicteric, conjunctiva are normal. ENT: TMs normal, nares patent, oropharynx clear without exudates. Uvula midline without edema. No OPTOMETRIC TECHNOLOGIST. No muffled voice. No tonsillar hypertrophy. No exudates. No pharyngeal erythema. Moist mucous membranes. NECK: Normal range of motion, supple without lymphadenopathy or JVD. LUNGS: Breath sounds clear to auscultation bilaterally and equal. No wheezes rales or rhonchi. HEART: Regular rate and rhythm without murmurs, rubs or gallops. ABDOMEN: Soft, nontender. No guarding, no rebound. No masses appreciated. EXTREMITIES: Normal range of motion, no pitting or edema. No clubbing or cyanosis. NEUROLOGICAL: Cranial nerves II through XII grossly intact. Normal speech, normal gait. PSYCH: Normal mood, normal affect. SKIN: Warm, Dry, normal turgor, no rashes or lesions noted. Course - Re-evaluation Re-evalutation: 09/08/19 nontoxic, well-appearing. History and physical consistent with viral URI. Lungs clear to auscultation bilaterally. Pharynx clear without exudates or erythema. No tonsillar hypertrophy. No OPTOMETRIC TECHNOLOGIST. No muffled voice. No trismus. Uvula midline without edema. Patient initially states she only took NyQuil and DayQuil for relief and was offered Flonase/Angeli-D. Patient states she has been taking Flonase, Angeli-D, and multiple other [id number] medications without relief. Patient prescribed Nasacort, instructed to continue Xyzal which she states works the best, and given prescription for Tessalon Perles. Strict return precautions given. Patient given follow-up with PCP. Patient voices understanding and agrees with plan of care. - Vital Signs Vital signs: Temp Pulse Resp BP Pulse Ox 97.7 F 82 16 118/55 L 98 09/08/19 08:11 09/08/19 08:11 09/08/19 08:11 09/08/19 08:11 09/08/19 08:11 Discharge - Discharge Clinical Impression: Viral URI with cough Condition: Stable Disposition: HOME, SELF-CARE Instructions: Upper Respiratory Illness ([facility]) Additional Instructions: Maintain adequate fluid intake tylenol/ibuprofen as needed alternating every 3 hours for fever/body ache take medications as prescribed Humidified air may help Wash your hands regularly Wear a mask when coughing F/u: with your PCM in 2-3 days for a recheck Return to the ED with any fever, altered mental status/behavior, chest pain, palpitations, syncope, headache, neck pain/stiffness, shortness of breath, chest pains, wheezing, drooling, trouble swallowing/breathing, abdominal pain, n/v/d, rash, or worsening/concerning symptoms otherwise. Prescriptions: Benzonatate [Tessalon Perle 100 mg Capsule] 100 mg PO Q8HP PRN #40 cap PRN Reason: Budesonide [Rhinocort Allergy] 8.43 ml NS BID #1 spray.pump Forms: Return to Work Referrals: ENRIQUETA RADFORD MD [ACTIVE STAFF] - Follow up in 3-5 days [facility] [Provider Group] - Follow up in 3-5 days
[2019-09-08 11:17] VITALS: BP 119/73
== END 2019-09-08 11:17 | disposition home or self-care (01) ==
LOC: ER 08:07
DX: J06.9 Acute upper respiratory infection, unspecified (principal); B97.89 Other viral agents as the cause of diseases classified elsewhere; R05 Cough; R50.9 Fever, unspecified; R09.81 Nasal congestion; H92.03 Otalgia, bilateral; R07.9 Chest pain, unspecified; R11.0 Nausea
CPT/HCPCS: 99283

== ENCOUNTER 2019-11-30 18:39 | Emergency (ER) | payer SELFPAY ==
--- NOTE | 2019-11-30 20:17 | ER Document Report ---
ED Respiratory Problem - General Chief Complaint: Shortness Of Breath Stated Complaint: SHORTNESS OF BREATH Time Seen by Provider: 11/30/19 19:56 Primary Care Provider: [facility] [Provider Group] - Follow up as needed [facility] [Provider Group] - Follow up as needed [facility] [Provider Group] - Follow up as needed Mode of Arrival: Ambulatory Information source: Patient Notes: 24-year-old female presented to ED for complaint of cough for about 3 weeks, with shortness of breath times a week runny nose and ear popping times a week. Patient states she has traveled from [place] to [place] within the last 2 weeks. She has also been in the presence of her mother who traveled from [place] to [place] back to [place] and works at a correctional facility as a commanding officer garage. Mother is a person under investigation. Patient does have purulent nasal drainage with postnasal drip no redness or enlargement to the tonsils. She does have mild fluid behind the right ear none behind the left. She states she does have some popping in the ears when she uses her Mulberry pot. TRAVEL OUTSIDE OF THE [place] IN LAST 30 DAYS: No - HPI Patient complains to provider of: Cough Onset: Other - See HPI Initiating Event: URI Quality of pain: No pain Severity: None Pain Level: Denies Short of Breath: Mild Cough: Nonproductive Sputum amount: None Associated symptoms: Congestion, Cough, PND, Runny nose, Sinus pain/pressure, Short of breath Similar symptoms previously: Yes Recently seen / treated by doctor: Yes - Related Data Allergies/Adverse Reactions: diphenhydramine [From Benadryl] Allergy (Severe, Verified 09/08/19 08:10) Swelling of hands and/or feet Home Medications: depo Past Medical History - General Information source: Patient - Social History Smoking Status: Never Smoker Cigarette use (# per day): No Chew tobacco use (# tins/day): No Smoking Education Provided: No Frequency of alcohol use: None Drug Abuse: None Lives with: Alone Family History: DM Patient has suicidal ideation: No Patient has homicidal ideation: No - Past Medical History Cardiac Medical History: Reports: None Pulmonary Medical History: Reports: None EENT Medical History: Reports: None Neurological Medical History: Reports: None Endocrine Medical History: Reports: None Renal/ Medical History: Reports: None Malignancy Medical History: Reports: None GI Medical History: Reports: None Musculoskeletal Medical History: Reports Hx Arthritis, Reports Hx Fibromyalgia Skin Medical History: Reports None Psychiatric Medical History: Reports: None Traumatic Medical History: Reports: Hx Traumatic Brain Injury Infectious Medical History: Reports: None Surgical Hx: Negative Past Surgical History: Reports: None - Immunizations Immunizations up to date: Yes Hx Diphtheria, Pertussis, Tetanus Vaccination: Yes Review of Systems - Review of Systems Constitutional: Recent illness EENT: Nose congestion, Sinus pressure, Sinus discharge, Throat pain. denies: Ear pain - Ear popping Cardiovascular: No symptoms reported Respiratory: Cough, Short of breath Gastrointestinal: No symptoms reported Genitourinary: No symptoms reported Female Genitourinary: No symptoms reported Musculoskeletal: No symptoms reported Skin: No symptoms reported Hematologic/Lymphatic: No symptoms reported Neurological/Psychological: No symptoms reported -: Yes All other systems reviewed and negative Physical Exam - Vital signs Vitals: Temp Pulse Resp BP Pulse Ox 98.4 F 87 18 122/83 100 11/30/19 20:13 11/30/19 20:13 11/30/19 20:13 11/30/19 20:13 11/30/19 20:13 Interpretation: Normal - General General appearance: Appears well, Alert - HEENT Head: Normocephalic, Atraumatic Eyes: Normal Pupils: PERRL Ears: Normal External canal: Normal Tympanic membrane: Normal Sinus: Normal Nasal: Purulent discharge, Swelling Mucous membranes: Normal Pharynx: Post nasal drainage Neck: Normal - Respiratory Respiratory status: No respiratory distress Chest status: Nontender Breath sounds: Nonproductive cough. No: Rales, Rhonchi, Stridor Chest palpation: Normal - Cardiovascular Rhythm: Regular Heart sounds: Normal auscultation Murmur: No - Abdominal Inspection: Normal Distension: No distension Bowel sounds: Normal Tenderness: Nontender Organomegaly: No organomegaly - Back Back: Normal, Nontender - Extremities General upper extremity: Normal inspection, Nontender, Normal color, Normal ROM, Normal temperature General lower extremity: Normal inspection, Nontender, Normal color, Normal ROM, Normal temperature, Normal weight bearing. No: Damien's sign - Neurological Neuro grossly intact: Yes Cognition: Normal Orientation: AAOx4 [place] Coma Scale Eye Opening: Spontaneous Shaista Coma Scale Verbal: Oriented Shaista Coma Scale Motor: Obeys Commands [place] Coma Scale Total: 15 Speech: Normal Motor strength normal: LUE, RUE, LLE, RLE Sensory: Normal - Psychological Associated symptoms: Normal affect, Normal mood - Skin Skin Temperature: Warm Skin Moisture: Dry Skin Color: Normal Course - Re-evaluation Re-evalutation: 11/30/19 21:32 . Patient presents with upper respiratory symptoms worrisome for possible Covid 19. Patient does not have emergency worring symptoms such as difficulty breathing, shortness of breath, chest pain, pressure, confusion or cyanosis. Patient appears suitable for discharge as they are not of an advanced age, do not have any chronic medical conditions such as diabetes, CAD, immune deficiency, chronic lung disease or chronic kidney disease. Patient's vital signs are stable and patient is nontoxic in appearance. Good return precautions have been discussed with patient, patient verbalized understanding and is agreea ble with discharge plan of care at this time. - Vital Signs Vital signs: Temp Pulse Resp BP Pulse Ox 98.1 F 81 18 133/85 H 99 11/30/19 22:56 11/30/19 22:56 11/30/19 22:56 11/30/19 22:56 11/30/19 22:56 - Laboratory Laboratory results interpreted by me: 11/30/19 20:09 Urine Urobilinogen 2.0 H Urine Ascorbic Acid 40 H - Diagnostic Test Radiology reviewed: Image reviewed, Reports reviewed Discharge - Discharge Clinical Impression: Viral respiratory illness, Coronavirus testing pending Condition: Stable Disposition: HOME, SELF-CARE Additional Instructions: UPPER RESPIRATORY ILLNESS: You have a viral infection of the respiratory passages -- a "cold." This common infection causes nasal congestion, drainage, and often sore throat and cough. It is highly contagious. The disease usually lasts about 10 to 14 days. There is no "cure" for the viral infection -- it must run its course. If there is a complication, such as bacterial infection in the nose, sinuses, middle ear, or bronchial tubes, antibiotics may be required. The antibiotics won't affect the virus. Drink plenty of fluids. A humidifier may help. An expectorant medication or decongestant may make you more comfortable. Use acetaminophen or ibuprofen for fever or aches. See the doctor if fever persists over two days, if there is any significant worsening of your symptoms, or if you simply fail to improve as expected. You have been recommended treatment with Claritin 10 mg Sudafed 30 mg and M ucinex 600 mg. These are all yxxk-phh-hxqssyx medications for cough cold congestion. You do need to call the go to the pharmacist to get the Sudafed from behind the counter please get a little red pills they are more effective. You could also use Flonase which is [id number] 1 spray each nostril twice a day. You could also use salt soda solution gargles. These will help to remove the drainage from the back your throat. Chloraseptic spray was [id number] that will also help with your sore throat. Salt and soda solution gargle 1 quart of water 1 tablespoon of salt 1 teaspoon of baking soda Mixed 3 ingredients together and boil for 1 minute Placed in a covered quart jar Use 1/2 ounce of cold solution to gargle 3 times a day USE OF ACETAMINOPHEN (Tylenol): Acetaminophen may be taken for pain relief or fever control. It's much safer than aspirin, offering a wider range of "safe" dosages. It is safe during . Some brand names are Tylenol, Panadol, Datril, Anacin 3, Tempra, and Liquiprin. Acetaminophen can be repeated every four hours. The following are maximum recommended dosages: >89 pounds or adults 650 mg to 900 mg Acetaminophen can be repeated every four hours. Maximum dose not to exceed 4000 mg a day. Patient was provided with discharge information including: As a person under investigation for Covid 19, the [place] department of Health and Human Services, division of public health advises you to adhere to the following guidance until your test results are reported to you. If your test result is positive, you will receive additional information from your provider and your local health department at that time. Remain at home until you are cleared by the health provider or public health authorities. Keep a log of visitors to your home, notify any visitors to your home of your isolation status. If you plan to move to a new address or leave the county, notify the local health department in your County. Call your doctor or seek care if you have an urgent medical need. Before seeking medical care, call ahead to get instructions from the provider before arriving at the medical office clinic or hospital. Notify them that you are being tested for the virus that causes Covid 19 so that arrangements can be made, as necessary, to prevent transmission to others in the healthcare setting. Next, notify the local health department in your county. If a medical emergency arises and you need to call 911, inform the first responders that you are being tested for the virus that causes Covid 19. Next, notify the local health department in your county. FOLLOW-UP CARE: If you have been referred to a physician for follow-up care, call the physicians office for an appointment as you were instructed or within the next two days. If you experience worsening or a significant change in your symptoms, notify the physician immediately or return to the Emergency Department at any time for re-evaluation. Forms: Return to Work Referrals: [facility] [Provider Group] - Follow up as needed [facility] [Provider Group] - Follow up as needed [facility] [Provider Group] - Follow up as needed
[2019-11-30 20:35] LABS: APPEARANCE,URINE CLEAR; BILIRUBIN,URINE NEGATIVE (NEGATIVE); COLOR,URINE YELLOW; GLUCOSE, URINE NEGATIVE (NEGATIVE); KETONES,URINE NEGATIVE (NEGATIVE); PROTEIN,URINE NEGATIVE (NEGATIVE); URINE SPECIFIC GRAVITY 1.025
[2019-11-30 20:46] LABS: A TYPE INFLUENZA AG NEGATIVE (NEGATIVE); B INFLUENZA AG NEGATIVE (NEGATIVE)
--- NOTE | 2019-11-30 20:47 | RADIOLOGY REPORT (SQ) ---
EXAM DESCRIPTION: Portable chest x-ray CLINICAL HISTORY: 24 years Female, cough short of breath COMPARISON: 10/15/2016. FINDINGS: Cardiomediastinal silhouette is not enlarged. No suspicious lung pleural bone abnormalities. IMPRESSION: Negative chest x-ray.
[2019-11-30 22:57] VITALS: BP 133/85
== END 2019-11-30 22:57 | disposition home or self-care (01) ==
LOC: ER 18:39
DX: B34.9 Viral infection, unspecified (principal); R06.02 Shortness of breath; R05 Cough; R68.89 Other general symptoms and signs; Z20.828 Contact with and (suspected) exposure to other viral communicable diseases
CPT/HCPCS: 71045; 81001; 81025; 87070; 87635; 87804; 87880; 99283

== ENCOUNTER 2019-12-26 10:21 | Emergency (ER) | payer SELFPAY ==
[2019-12-26 10:26] VITALS: BP 127/80
--- NOTE | 2019-12-26 11:00 | ER Document Report ---
ED Medical Screen (RME) - General Chief Complaint: Skin Problem Stated Complaint: SORE ON BUTTOCKS Time Seen by Provider: 12/26/19 10:55 Notes: Patient is a 24-year-old female presents emergency department with a chief complaint of tailbone pain. Patient has history of pilonidal cyst with drainings in the past. Patient states a few days ago the area started hurting. Exam: Exam limited due to patient not being gown and currently in triage. Patient will be evaluated in an exam room by another provider. I have greeted and performed a rapid initial assessment of this patient. A comprehensive ED assessment and evaluation of the patient, analysis of test results and completion of medical decision making process will be conducted by an additional ED providers. TRAVEL OUTSIDE OF THE [place] IN LAST 30 DAYS: No - Related Data Allergies/Adverse Reactions: diphenhydramine [From Benadryl] Allergy (Severe, Verified 09/08/19 08:10) Swelling of hands and/or feet Past Medical History Musculoskeltal Medical History: Reports Hx Arthritis, Reports Hx Fibromyalgia Traumatic Medical History: Reports: Hx Traumatic Brain Injury - Immunizations Immunizations up to date: Yes Hx Diphtheria, Pertussis, Tetanus Vaccination: Yes Physical Exam - Vital signs Vitals: Temp Pulse Resp BP Pulse Ox 98.2 F 93 16 127/80 H 97 12/26/19 10:24 12/26/19 10:24 12/26/19 10:12/26/19 10:24 12/26/19 10:24 Course - Vital Signs Vital signs: Temp Pulse Resp BP Pulse Ox 98.2 F 93 16 127/80 H 97 12/26/19 10:24 12/26/19 10:24 12/26/19 10:24 12/26/19 10:24 12/26/19 10:24
[2019-12-26 11:21] LABS: ABSOLUTE EOSINOPHILS # (AUTO) 0.2 10^3/uL (0.0-0.6); ABSOLUTE LYMPHOCYTES (AUTO) 2.8 10^3/uL (0.5-4.7); ABSOLUTE MONOCYTES (AUTO) 0.6 10^3/uL (0.1-1.4); ABSOLUTE NEUT (AUTO) 6.8 10^3/uL (1.7-8.2); BASOPHILS % (AUTO) 0.5 % (0-2); EOSINOPHILS % (AUTO) 1.8 % (0-6); HEMATOCRIT 37.3 % (36.0-47.0); HEMOGLOBIN 12.9 g/dL (12.0-15.5); LYMPHOCYTES % (AUTO) 26.7 % (13-45); MEAN CORPUSCULAR HEMOGLOBIN 30.3 pg (27.0-33.4); MEAN CORPUSCULAR HGB CONC 34.5 g/dL (32.0-36.0); MEAN CORPUSCULAR VOLUME 88 fl (80-97); MONOCYTES % (AUTO) 5.9 % (3-13); PLATELET COUNT 333 10^3/uL (150-450); RED BLOOD COUNT 4.25 10^6/uL (3.72-5.28); RED CELL DISTRIBUTION WIDTH 12.9 % (11.5-14.0); SEGMENTED NEUTROPHILS % (AUTO) 65.1 % (42-78); TOTAL CELLS COUNTED % (AUTO) 100 %; WHITE BLOOD COUNT 10.5 10^3/uL (4.0-10.5)
[2019-12-26 11:35] LABS: ANION GAP 8 (5-19); BLOOD UREA NITROGEN 16 mg/dL (7-20); CALCIUM 9.8 mg/dL (8.4-10.2); CARBON DIOXIDE 25 mmol/L (22-30); CHLORIDE 106 mmol/L (98-107); GLUCOSE 104 mg/dL (75-110); POTASSIUM 4.7 mmol/L (3.6-5.0)
--- NOTE | 2019-12-26 11:42 | ER Document Report ---
HPI - HPI Patient complains to provider of: Abscess Time Seen by Provider: 12/26/19 10:55 Onset: Other - 4 days Onset/Duration: Worse Quality of pain: Achy Pain Level: 4 Context: Patient presents complaining of abscess to buttocks for the past 4 days. Patient states she has had similar problems in the past although none for several years. Patient denies any fever. Associated Symptoms: Other - Abscess to buttocks Exacerbated by: Sitting, Movement Relieved by: Denies Similar symptoms previously: Yes Recently seen / treated by doctor: No - ROS ROS below otherwise negative: Yes Systems Reviewed and Negative: Yes All other systems reviewed and negative - CONSTITUTIONAL Constitutional: DENIES: Fever, Chills - REPRODUCTIVE Reproductive: DENIES: : - DERM Skin Color: Erythema Notes: Abscess to buttock Past Medical History - General Information source: Patient - Social History Smoking Status: Never Smoker Chew tobacco use (# tins/day): No Frequency of alcohol use: Occasional Drug Abuse: None Lives with: Family Family History: DM Patient has homicidal ideation: No Musculoskeletal Medical History: Reports Hx Arthritis, Reports Hx Fibromyalgia Traumatic Medical History: Reports: Hx Traumatic Brain Injury Surgical Hx: Negative - Immunizations Immunizations up to date: Yes Hx Diphtheria, Pertussis, Tetanus Vaccination: Yes Vertical Provider Document - CONSTITUTIONAL Agree With Documented VS: Yes Exam Limitations: No Limitations General Appearance: WD/WN, No Apparent Distress - INFECTION CONTROL TRAVEL OUTSIDE OF THE [place] IN LAST 30 DAYS: No - HEENT HEENT: Atraumatic, Normocephalic - NECK Neck: Normal Inspection, Supple - RESPIRATORY Respiratory: Breath Sounds Normal, No Respiratory Distress - CARDIOVASCULAR Cardiovascular: Regular Rate, Regular Rhythm - MUSCULOSKELETAL/EXTREMETIES Musculoskeletal/Extremeties: MAEW - NEURO Level of Consciousness: Awake, Alert, Appropriate Motor/Sensory: No Motor Deficit - DERM Integumentary: Warm, Dry Course - Vital Signs Vital signs: Temp Pulse Resp BP Pulse Ox 98.2 F 93 16 127/80 H 97 12/26/19 10:24 12/26/19 10:24 12/26/19 10:24 12/26/19 10:24 12/26/19 10:24 - Laboratory Result Diagrams: 12/26/19 11:05 12/26/19 11:05 Procedures - Incision and Drainage Buttock Type: Simple Anesthetic type: 1% Lidocaine I&D procedure: Betadine prep applied Incision Method: Incision made by scalpel Amount/type of drainage: moderate amount of purulent drainage Discharge - Discharge Clinical Impression: Abscess, Encounter for incision and drainage procedure Condition: Stable Disposition: HOME, SELF-CARE Instructions: Abscess ([facility]), Post Incision and Drainage, Trimethoprim-Sulfa ([facility]) Additional Instructions: Return immediately for any new or worsening symptoms Followup with your primary care provider, call tomorrow to make a followup appointment Prescriptions: Sulfamethoxazole/Trimethoprim [Bactrim Ds Tablet] 1 each PO BID #20 tablet Naproxen [Naprosyn 250 Nmg Tablet] 1 tab PO BID #14 tablet Referrals: [facility] [Provider Group] - Follow up as needed
[2019-12-26] MEDS ORDERED: SULFAMETHOXAZOLE/TRIMETHOPRIM 800-160 MG TABLET PO ONE (13:25)
== END 2019-12-26 14:08 | disposition home or self-care (01) ==
LOC: ER 10:21
DX: L02.31 Cutaneous abscess of buttock (principal)
CPT/HCPCS: 36415; 80048; 85025; 99283

== ENCOUNTER → 2020-07-09 | Outpatient (CLI) | payer OTHER, SELFPAY | LOC: OD 08:48 → EDSTATUS 07-14 08:30 | PROVIDERS: ATTEND Otolaryngology | DX: Z03.818 Encounter for observation for suspected exposure to other biological agents ruled out (principal) | CPT/HCPCS: 87635; C9803 ==

== ENCOUNTER → 2020-07-16 | Outpatient (CLI) | payer OTHER | LOC: OD 08:40 → EDSTATUS 07-21 07:30 | PROVIDERS: ATTEND Otolaryngology | DX: Z03.818 Encounter for observation for suspected exposure to other biological agents ruled out (principal) | CPT/HCPCS: 87635; C9803 ==

== ENCOUNTER 2020-07-31 12:32 | Emergency (ER) | payer OTHER ==
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
[2020-07-31 16:14] VITALS: BP 122/70
== END 2020-07-31 16:14 | disposition home or self-care (01) ==
LOC: ER 12:32
DX: J02.9 Acute pharyngitis, unspecified (principal); J35.03 Chronic tonsillitis and adenoiditis; R05 Cough; R50.9 Fever, unspecified; R09.81 Nasal congestion; Z88.8 Allergy status to other drugs, medicaments and biological substances; Z88.1 Allergy status to other antibiotic agents
CPT/HCPCS: 87070; 87077; 87880; 99283

== ENCOUNTER 2020-09-26 13:31 | Emergency (ER) | payer OTHER ==
[2020-09-26] MEDS ORDERED: MORPHINE SULFATE 10 MG/ML INJ IV ONE (14:28)
[2020-09-26] MEDS ORDERED: NORMAL SALINE 1000 ML 1,000 ML IV ONE ×2 (14:28→15:47)
[2020-09-26] MEDS ORDERED: ONDANSETRON HCL INJ/PF 4 MG/2 ML SDV IV ONE (14:29)
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
[2020-09-26 15:10] LABS: ABSOLUTE BASOPHILS # (AUTO) 0.1 10^3/uL (0.0-0.2); ABSOLUTE EOSINOPHILS # (AUTO) 0.2 10^3/uL (0.0-0.6); ABSOLUTE LYMPHOCYTES (AUTO) 1.7 10^3/uL (0.5-4.7); ABSOLUTE MONOCYTES (AUTO) 0.6 10^3/uL (0.1-1.4); ABSOLUTE NEUT (AUTO) 10.2 10^3/uL (1.7-8.2); BASOPHILS % (AUTO) 0.4 % (0-2); EOSINOPHILS % (AUTO) 1.5 % (0-6); HEMATOCRIT 36.8 % (36.0-47.0); HEMOGLOBIN 12.5 g/dL (12.0-15.5); LYMPHOCYTES % (AUTO) 13.3 % (13-45); MEAN CORPUSCULAR HEMOGLOBIN 29.5 pg (27.0-33.4); MEAN CORPUSCULAR VOLUME 87 fl (80-97); MONOCYTES % (AUTO) 4.7 % (3-13); PLATELET COUNT 354 10^3/uL (150-450); RED BLOOD COUNT 4.25 10^6/uL (3.72-5.28); SEGMENTED NEUTROPHILS % (AUTO) 80.1 % (42-78); TOTAL CELLS COUNTED % (AUTO) 100 %; WHITE BLOOD COUNT 12.7 10^3/uL (4.0-10.5)
[2020-09-26 15:36] LABS: ANION GAP 9 (5-19); BLOOD UREA NITROGEN 10 mg/dL (7-20); CALCIUM 9.6 mg/dL (8.4-10.2); CARBON DIOXIDE 27 mmol/L (22-30); CHLORIDE 100 mmol/L (98-107); GLUCOSE 105 mg/dL (75-110)
[2020-09-26] MEDS ORDERED: LIDOCAINE 2% VISCOUS SOLN 15 ML UDCUP PO ONE (15:36)
[2020-09-26 15:37] LABS: POTASSIUM 4.4 mmol/L (3.6-5.0)
[2020-09-26] MEDS ORDERED: KETOROLAC TROMETHAMINE INJ/PF 30 MG/1 ML SDV IV ONE (15:48)
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
[2020-09-26] MEDS ORDERED: DEXAMETHASONE SOD PHOS INJ 10 MG/1 ML VIAL IV ONE (16:13)
[2020-09-26] MEDS ORDERED: CLINDAMYCIN HCL 150 MG CAPSULE PO ONE (17:28)
[2020-09-26 19:06] VITALS: BP 125/83
== END 2020-09-26 19:06 | disposition home or self-care (01) ==
LOC: ER 13:31
DX: G89.18 Other acute postprocedural pain (principal); R11.0 Nausea
CPT/HCPCS: 99284; 96361; 96374; 96375; 36415; 85025; 80048; J3490; J1885; J2270; J2405; J7030; J1100